=== PATIENT | male | born 1955 | race Caucasian/White ===

== ENCOUNTER → 2017-12-03 | Outpatient (CLI) | payer OTHER | LOC: M RAD 14:01 | DX: R91.8 Other nonspecific abnormal finding of lung field (principal) | CPT/HCPCS: 71250 ==

== ENCOUNTER 2017-12-09 05:54 | Day surgery (SDC) | payer OTHER ==
[2017-12-09] MEDS ORDERED: LR 1,000 ML IV ×2 (06:30→09:15)
[2017-12-09 07:15] LABS: ANION GAP 7 MEQ/L (8-16); BLOOD UREA NITROGEN 20 MG/DL (7-18); CARBON DIOXIDE LEVEL 29 MEQ/L (21-32); CHLORIDE LEVEL 106 MEQ/L (98-107); CREATININE FOR GFR 0.82 MG/DL (0.70-1.30); GLOMERULAR FILTRATION RATE > 60.0 (>49); GLUCOSE, FASTING 88 MG/DL (70-100); HEMATOCRIT 44.8 % (42.0-52.0); HEMOGLOBIN 15.2 g/dl (13.5-17.5); MEAN CORPUSCULAR HEMOGLOBIN 27.3 pg (27.0-33.0); MEAN CORPUSCULAR HGB CONC 33.9 g/dl (32.0-36.5); MEAN CORPUSCULAR VOLUME 80.4 fl (80.0-96.0); PLATELET COUNT, AUTOMATED 182 10^3/uL (150-450); POTASSIUM SERUM 4.3 MEQ/L (3.5-5.1); RED BLOOD COUNT 5.57 10^6/uL (4.30-6.10); SODIUM LEVEL 142 MEQ/L (136-145); WHITE BLOOD COUNT 4.8 10^3/uL (4.0-10.0)
[2017-12-09] MEDS: CETACAINE SPRAY 5GM As Ordered (07:45)
[2017-12-09] MEDS ORDERED: METOCLOPRAMIDE INJ 10MG/2ML VIAL (J2765) As Ordered (07:55)
[2017-12-09] MEDS ORDERED: LIDOCAINE 2% INJ 100 MG/5 ML SDV (FOR ANES.) As Ordered (07:55)
[2017-12-09] MEDS ORDERED: ROCURONIUM BROMIDE 50 MG/5 ML VIAL As Ordered ×2 (07:55→08:30)
[2017-12-09] MEDS ORDERED: MIDAZOLAM INJ 2 MG/2 ML VIAL (J2250) As Ordered (07:55)
[2017-12-09] MEDS ORDERED: PROPOFOL 200 MG/20 ML VIAL As Ordered (07:55)
[2017-12-09] MEDS ORDERED: dexameTHASONE 4 MG/ML 1ML VIAL (J1100) As Ordered (07:55)
[2017-12-09] MEDS ORDERED: fentaNYL 100 MCG/2 ML INJECTION (J3010) As Ordered (07:55)
[2017-12-09] MEDS ORDERED: GLYCOPYRROLATE INJ 0.2 MG/ML 2 ML VIAL As Ordered ×2 (07:56)
[2017-12-09] MEDS ORDERED: ONDANSETRON 4MG/2ML VIAL (J2405) As Ordered (07:56)
[2017-12-09] MEDS ORDERED: NEOSTIGMINE 10 MG/10 ML VIAL (J2710) As Ordered (07:56)
[2017-12-09] MEDS ORDERED: ePHEDrine SULFATE 25 MG/5 ML(5MG/ML) SYRINGE As Ordered (08:00)
[2017-12-09] MEDS ORDERED: SUGAMMADEX SODIUM 500 MG/5 ML VIAL (BRIDION) As Ordered (08:32)
[2017-12-09] MEDS: LIDOCAINE VISCOUS 2% SOLN 15ML UDC As Ordered (08:45)
[2017-12-09] MEDS: EPINEPHrine 1MG/10ML SYRINGE 1.5IN As Ordered (08:45)
[2017-12-09] MEDS: THROMBIN SOLN 5,000 UNITS VIAL As Ordered (08:45)
[2017-12-09] MEDS: LIDOCAINE 1% SDV INJ 30 ML VIAL As Ordered (08:45)
[2017-12-09] MEDS ORDERED: METOCLOPRAMIDE INJ 10MG/2ML VIAL (J2765) IV (09:15)
[2017-12-09] MEDS ORDERED: ONDANSETRON 4MG/2ML VIAL (J2405) IV (09:15)
[2017-12-09] MEDS ORDERED: PERCOCET 5MG/325MG TAB PO (09:15)
[2017-12-09] MEDS ORDERED: MEPERIDINE INJ 25 MG/ML VIAL (J2175) IV (09:15)
[2017-12-09] MEDS ORDERED: fentaNYL 100 MCG/2 ML INJECTION (J3010) IV (09:15)
== END 2017-12-09 09:37 | disposition home or self-care (01) ==
LOC: M SDC 05:54
DX: R91.8 Other nonspecific abnormal finding of lung field (principal); E78.5 Hyperlipidemia, unspecified; J45.909 Unspecified asthma, uncomplicated; R31.9 Hematuria, unspecified; G47.33 Obstructive sleep apnea (adult) (pediatric); Z79.899 Other long term (current) drug therapy; E66.9 Obesity, unspecified
CPT/HCPCS: 31624

== ENCOUNTER → 2017-12-17 | Outpatient (REF) | payer OTHER | LOC: M LAB REF 16:54 | DX: R05 Cough (principal) ==

== ENCOUNTER → 2018-03-11 | Outpatient (CLI) | payer OTHER | LOC: M RAD 14:58 | DX: K43.2 Incisional hernia without obstruction or gangrene (principal) | CPT/HCPCS: 71250 ==

== ENCOUNTER → 2018-09-10 | Outpatient (CLI) | payer OTHER ==
[~2018-09-10] MED LIST: DOXE10CA PO; DULO1CAP3 PO; SING10TA32 PO
--- NOTE | 2018-09-11 07:59 | REP ---
Clinical: Follow-up pulmonary nodules. Technique: Axial noncontrast images from the thoracic inlet to the upper abdomen with coronal and sagittal re-formations. Comparison: 03/11/2018, 2017. Findings: Scattered bilateral noncalcified nodules measuring up to approximately 8 mm remains stable. No new acute consolidation, significant nodule or mass lesion. No pleural effusion. No pneumothorax. Tracheobronchial tree is patent. No obvious adenopathy appreciated. Mediastinum demonstrates atherosclerotic changes to the thoracic aorta and coronary arteries without aortic aneurysm or cardiomegaly. No pericardial effusion. Surrounding musculoskeletal structures demonstrate age-related changes without focal osseous abnormality. Limited upper abdomen demonstrates normal bilateral adrenal glands. Impression: 1. Stable scattered noncalcified nodules up to approximately 8 mm unchanged through 11/15/2017. 2. No new acute significant process appreciated. Electronically Signed by Marlon Crespo MD 09/11/2018 07:50 A
== END ==
LOC: M RAD 15:41
PROVIDERS: ATTEND Internal Medicine Pulmonary Disease
DX: R91.8 Other nonspecific abnormal finding of lung field (principal); I70.0 Atherosclerosis of aorta; I25.10 Atherosclerotic heart disease of native coronary artery without angina pectoris

== ENCOUNTER → 2019-08-31 | Outpatient (CLI) | payer OTHER ==
[~2019-08-31] MED LIST changes: -DULO1CAP3 PO; +DULO1CAP6 PO
--- NOTE | 2019-09-01 03:23 | REP ---
Clinical: Follow up abnormal lung findings. Comparison: 09/10/2018, 03/11/2018. Technique: Axial noncontrast images from the thoracic inlet to the upper abdomen with coronal and sagittal re-formations. Findings: Subtle bilateral scattered noncalcified nodular densities are again noted and appear relatively stable although slight variation as compared to multiple prior examinations is noted. Findings may represent an underlying subacute active granulomas disease and correlation with pulmonary consultation may be warranted. No significant focal consolidation. No effusion or pneumothorax. Tracheobronchial tree is relatively patent/normal. No obvious significant adenopathy. Mediastinum demonstrates stable appearance to the thoracic aorta, pulmonary vasculature and heart/pericardium including age-related atherosclerotic disease. Impression: Relatively stable appearing noncalcified nodules likely representing changes related to underlying granulomatous disease. Electronically Signed by Marlon Crespo MD 09/01/2019 03:14 A
== END ==
LOC: M RAD 14:45
PROVIDERS: ATTEND Internal Medicine Pulmonary Disease
DX: R91.8 Other nonspecific abnormal finding of lung field (principal)

== ENCOUNTER → 2022-09-05 | Outpatient (CLI) | payer OTHER ==
[~2022-09-05] MED LIST changes: +ALBU6.7H6 INH; +ASPI1TAB8 PO; +ATOR40TA75 PO; +BRIL90TA PO; +ISOS1TAB35 PO; +METO1TAB32 PO; +MONT-5 PO; +MONT10TA97 PO; +NITR0.4S14 SL; -SING10TA32 PO
== END ==
LOC: M LABSMTC 11:26
PROVIDERS: ATTEND Anesthesiology
DX: Z01.818 Encounter for other preprocedural examination (principal); Z11.52 Encounter for screening for COVID-19

== ENCOUNTER 2022-09-10 08:04 | Day surgery (SDC) | payer OTHER ==
[~2022-09-10] VITALS: Ht 172.7 cm; Wt 115.1 kg
[~2022-09-10 08:04] MED LIST changes: +CYCLOPENTOLATE 1% OPHTH SOLN 2ML BTL OS SCH; +FLURBIPROFEN 0.03% OPHTH SOLN 2.5 ML OS SCH; +LIDOCAINE 1% SDV 5ML VIAL As Ordered ONE; +LR 1,000 ML IV SCH; +PHENYLEPHRINE 2.5% OPHTH SOL 2ML OS SCH; +TETRACAINE 0.5% OPHTH SOLN 4ML OS SCH
[2022-09-10] MEDS ORDERED: fentaNYL 100 MCG/2 ML INJECTION As Ordered ONE (10:12)
[2022-09-10] MEDS ORDERED: MIDAZOLAM INJ 2MG/2ML VIAL As Ordered ONE (10:12)
[2022-09-10 10:20] VITALS: BP 137/91
== END 2022-09-10 10:45 | disposition home or self-care (01) ==
LOC: M SDC 08:04
PROVIDERS: ATTEND Ophthalmology
DX: H25.12 Age-related nuclear cataract, left eye (principal); Z95.5 Presence of coronary angioplasty implant and graft; I10 Essential (primary) hypertension; E78.5 Hyperlipidemia, unspecified; G47.30 Sleep apnea, unspecified; Z79.82 Long term (current) use of aspirin; Z79.899 Other long term (current) drug therapy
CPT/HCPCS: 66984; J2250; J3010